=== PATIENT | female | born 1960 | race Caucasian/White ===

== ENCOUNTER 2016-12-12 20:49 | Emergency (ER) | payer MEDICARE, OTHER ==
[~2016-12-12 20:49] MED LIST: EXCETAB80 PO; META55.43 PO; PAIN PILL PO
[2016-12-12] MEDS ORDERED: METOCLOPRAMIDE INJ 10MG/2ML VIAL (J2765) As Ordered ONE (22:06)
[2016-12-12] MEDS ORDERED: KETOROLAC 30 MG/ML VIAL (J1885) As Ordered ONE (22:06)
[2016-12-12 23:05] LABS: BASO % 0.5 % (0.0-1.0); EOS % 0.6 % (0.0-3.0); LARGE UNSTAINED CELL # 0.2 K/mm3 (0.0-0.4); LARGE UNSTAINED CELL % 2.5 % (0.0-4.0); LYMPH # 1.5 K/mm3 (1.5-4.5); LYMPH % 21.7 % (24.0-44.0); MEAN CORPUSCULAR HEMOGLOBIN 30.9 pg (27.0-33.0); MEAN CORPUSCULAR HGB CONC 33.2 g/dl (32.0-36.5); MONO # 0.6 K/mm3 (0.0-0.8); MONO % 10.1 % (0.0-5.0); NEUTROPHILS # 3.9 K/mm3 (1.8-7.7); NEUTROPHILS % 64.5 % (36.0-66.0); PLATELET COUNT, AUTOMATED 222 k/mm3 (150-450); RED CELL DISTRIBUTION WIDTH 11.9 % (11.5-14.5); WHITE BLOOD COUNT 6.1 K/mm3 (4.0-10.0)
[2016-12-12 23:09] LABS: ALBUMIN 3.5 GM/DL (3.2-5.2); ALKALINE PHOSPHATASE 92 U/L (45-117); ALT/SGPT 26 U/L (12-78); AMYLASE 37 U/L (25-115); ANION GAP 13 MEQ/L (8-16); AST/SGOT 19 U/L (15-37); BILIRUBIN,DIRECT < 0.1 MG/DL (0.0-0.2); BILIRUBIN,TOTAL 0.2 MG/DL (0.2-1.0); BLOOD UREA NITROGEN 12 MG/DL (7-18); CALCIUM LEVEL 8.5 MG/DL (8.5-10.1); CARBON DIOXIDE LEVEL 26 MEQ/L (21-32); CHLORIDE LEVEL 102 MEQ/L (98-107); GLOMERULAR FILTRATION RATE 54.5 (>51); GLUCOSE, FASTING 94 MG/DL (70-105); POTASSIUM SERUM 3.9 MEQ/L (3.5-5.1); SODIUM LEVEL 141 MEQ/L (136-145)
--- NOTE | 2016-12-12 23:10 | REPUSA ---
CT of the head Clinical history: Headache. Technique: Multiple axial CT images were obtained through the head without administration of contrast . Findings: The ventricles and sulci are symmetric bilaterally. There is no evidence of acute hemorrhag e or infarct. There is no midline shift, mass effect, or extra-axial fluid collection. The osseous st ructures are unremarkable. The visualized paranasal sinuses and mastoid air cells are clear. Impression: Negative study.
--- NOTE | 2016-12-12 23:20 | REPUSA ---
CT of the abdomen and pelvis without contrast Clinical statement: Pain. Technique: Multiple axial CT images were obtained from the base of the lungs to the floor of the pelv is utilizing 5 mm axial slices without administration of contrast. Coronal and sagittal reconstructio ns were also obtained. Comparison: 03/27/2015. Findings: Chest: The visualized lung bases are clear. Abdomen: The kidneys are normal in size bilaterally. There is a 1.2 cm simple cyst in the inferior le ft kidney. There is no evidence of hydronephrosis or nephrolithiasis. The liver, spleen, pancreas, ga llbladder and adrenal glands are unremarkable. The aorta demonstrates normal caliber and contour. The re is no abdominal lymphadenopathy or ascites. Pelvis: The bowel is unremarkable, with no obstructive or inflammatory changes. The appendix is nate l. The urinary bladder is within normal limits. There is no pelvic lymphadenopathy or ascites. The ot her pelvic structures appear unremarkable. Bones: There are no suspicious osseous abnormalities seen. Impression: No acute abnormality appreciated.
--- NOTE | 2016-12-12 23:54 | EDDOCDS ---
Nurse's Notes [facility] Name: Marian Vera Age: 55 yrs Sex: Female : 1960 Arrival Date: 12/12/2016 Time: 20:49 Bed I7 / 29 Private MD: Darline Lovell DO Diagnosis: Headache;Illness, unspecified-viral illness;Abdominal and pelvic pain Presentation: 12/12 20:57 Presenting complaint: Patient states: Fevers, headache, coughing x 4 days. Also jo3 complains of consistent pain (for years) in RUQ that seems to be worse today. This patient has no additional risk factors. Adult Sepsis Screening: The patient does not have new or worsening altered mentation. Patient's respiratory rate is less than 22. Systolic blood pressure is greater than 100. Patient has a qSOFA score of 0- Negative Sepsis Screen. Suicide/Homicide risk assessment- the patient denies having any suicidal and/or homicidal ideations and does not present with any other emotional, behavioral or mental health complaints. Status: Patient is not a guest services coordinator or dependent. Transition of care: patient was not received from another setting of care. 20:57 Acuity: MANPREET Level 4 jo3 20:57 Method Of Arrival: Walkin/Carried/Asstd jo3 22:01 Acuity level changed due to complexity of care. jo3 22:01 Acuity: MANPREET Level 3 jo3 Triage Assessment: 21:00 Headache History: This patient has a history of headaches and the character of this jo3 headache is like all previous headaches. General: Appears in no apparent distress, comfortable, Behavior is appropriate for age, cooperative, pleasant. Pain: Pain currently is 8 out of 10 on a pain scale. HIV screening NA for this visit Offered previously. Neurological: Level of Consciousness is awake, alert, Oriented to person, place, time. Respiratory: Airway is patent Respiratory effort is even, unlabored. Derm: Skin is pink, warm & dry. Historical: - Allergies: anitpsychotics; - Home Meds: 1. nyquil recommended dose (Last dose: 12/12/2016 20:00) - PMHx: autoimmune disease; Bipolar disorder; Hypercholesterolemia; - PSHx: Hysterectomy; Tubal ligation; neck surgery as child; - Social history: Smoking status: Patient uses tobacco products, light tobacco smoker. No barriers to communication noted, The patient speaks fluent Danish, Speaks appropriately for age. - Family history: Not pertinent. - : The pt / caregiver states he / she is not on anticoagulants. Home medication list is obtained from the patient. - Exposure Risk Screening:: None identified. Screenin:51 Screening information is obtained from the patient. Fall risk: No risks identified. ld5 Assistance ADL's: requires no assistance with activities of daily living. Abuse/DV Screen: The patient / caregiver reports he/she is: not in a situation that causes fear, pain or injury. Nutritional screening: No deficits noted. Advance Directives: Currently, there is no health care proxy. home support is adequate. Assessment: 22:23 General: Appears in no apparent distress, Behavior is appropriate for age. General: Pt ld5 very vague with answers. "I'm 55 so who knows what could be wrong with me". Pain: Location: head and abdomen. Neurological: Level of Consciousness is awake, alert. Respiratory: Airway is patent Respiratory effort is even, unlabored. GI: Abdomen is non- distended Bowel sounds present X 4 quads. Abd is soft X 4 quads Denies constipation, diarrhea, nausea, vomiting. : Denies burning with urination, pain with urination. Derm: Skin is intact, Skin is dry. 23:02 General: Pt returned from CT. Tolerated well. Reports feeling better but headache is ld5 unchanged. Will continue to monitor. 23:51 General: Appears in no apparent distress, Behavior is cooperative. Pain: Pain currently ld5 is 2 out of 10 on a pain scale. Neurological: Level of Consciousness is awake, alert. Respiratory: Airway is patent Respiratory effort is even, unlabored. Vital Signs: 20:51 BP 114 / 64; Pulse 102; Resp 18; Temp 100.4(O); Pulse Ox 96% on R/A; Weight 79.38 kg lr2 (R); Height 5 ft. 3 in. (160.02 cm) (R); Pain 6/10; 23:51 BP 90 / 54; Pulse 81; Resp 16; Temp 97; Pulse Ox 94% on R/A; ld5 20:51 Body Mass Index 31.00 (79.38 kg, 160.02 cm) lr2 Vitals: 20:51 Log In Time: December 12, 2016 at 20:49. lr2 ED Course: 20:51 Patient visited by Rayna Guadarrama. lr2 20:51 Darline Lovell is Private Physician. lr2 20:51 Patient moved to Waiting lr2 20:51 Patient moved to Pre RCE lr2 20:59 Triage Initiated jo3 21:01 Patient visited by Isabelle Hicks RN. jo3 21:21 Patient moved to Triage 3 jo3 21:44 [facility] ke 21:45 Patient visited by Matheus Woodard FNP. ke 21:45 Patient visited by Matheus Woodard FNP. ke 22:00 Patient moved to I7 jo3 22:17 Patient visited by Matheus Woodard FNP. ke 22:23 -Influenza A&B Rapid Antigen - Nose Sent. ld5 22:23 Amylase Sent. ld5 22:23 Basic Metabolic Profile Sent. ld5 22:23 CBC with Diff Sent. ld5 22:23 Lipase Sent. ld5 22:23 Liver Profile Sent. ld5 22:23 Urinalysis Sent. ld5 22:23 Urine Culture Sent. ld5 22:23 Inserted saline lock: 20 gauge in right antecubital area and blood collected. The ld5 patient tolerated the procedure well. Labs drawn. (by ED staff). Sent per order to lab. 22:43 [facility] [place] into [employer] and attached to record. [id number] 22:56 Patient visited by Matheus Woodard FNP. ke 23:03 Patient visited by Rayna Castillo,MARYJANE. ld5 23:36 Patient visited by Matheus Woodard FNP. ke 23:39 CT Head Without Contrast Returned. EDMS 23:39 CT ABD & PELVIS: No Contrast Returned. EDMS 23:40 Darline Lovell is Referral Physician. ke 23:51 The patient / caregiver is instructed regarding the plan of care and ED course. Patient ld5 has correct armband on for positive identification. 23:52 No procedures done that require assistance. ld5 23:53 Patient visited by Rayna Castillo,MARYJANE. ld5 Administered Medications: 22:23 Drug: NS 0.9% 1000 ml [sodium chloride 0.9 % intravenous solution] Route: IV; Rate: ld5 bolus; Site: right antecubital; 23:53 Follow up: IV Status: Completed infusion; IV Intake: 1000ml ld5 22:23 Drug: ketorolac 30 mg [ketorolac 30 mg/mL (1 mL) injection solution (1 mL)] Route: IVP; ld5 Site: right antecubital; 23:02 Follow up: Response: Pain is decreased ld5 22:23 Drug: Metoclopramide 10 mg [metoclopramide 5 mg/mL injection solution] Route: IV; Rate: ld5 40 mg/hr; Infused Over: 15 mins; Site: right antecubital; 23:02 Follow up: IV Status: Completed infusion ld5 Intake: 23:53 IV: 1000.00ml; Total: 1000.00ml. ld5 Order Results: Lab Order: Amylase; SPEC'M 12/12/16 22:20 Test: AMYLASE; Value: 37; Range: 25-115; Units: U/L; Status: F Lab Order: Basic Metabolic Profile; SPEC'M 12/12/16 22:20 Test: GLUCOSE, FASTING; Value: 94; Range: 70-105; Units: MG/DL; Status: F Test: BLOOD UREA NITROGEN; Value: 12; Range: 7-18; Units: MG/DL; Status: F Test: CREATININE FOR GFR; Value: 1.10; Range: 0.55-1.02; Abnormal: Above high normal; Units: MG/DL; Status: F Test: GLOMERULAR FILTRATION RATE; Value: 54.5; Range: >51; Status: F Test: SODIUM LEVEL; Value: 141; Range: 136-145; Units: MEQ/L; Status: F Test: POTASSIUM SERUM; Value: 3.9; Range: 3.5-5.1; Units: MEQ/L; Status: F Test: CHLORIDE LEVEL; Value: 102; Range: 98-107; Units: MEQ/L; Status: F Test: CARBON DIOXIDE LEVEL; Value: 26; Range: 21-32; Units: MEQ/L; Status: F Test: ANION GAP; Value: 13; Range: 8-16; Units: MEQ/L; Status: F Test: CALCIUM LEVEL; Value: 8.5; Range: 8.5-10.1; Units: MG/DL; Status: F Test Note: ; Units are mL/min/1.73 m2 Chronic Kidney Disease Staging per NKF: Stage I & II GFR >=60 Normal to Mildly Decreased Stage III GFR 30-59 Moderately Decreased Stage IV GFR 15-29 Severely Decreased Stage V GFR <15 Very Little GFR Left ESRD GFR <15 on DEMOLITION EXPERT Lab Order: CBC with Diff; ALEJANDRO 12/12/16 22:20 Test: WHITE BLOOD COUNT; Value: 6.1; Range: 4.0-10.0; Units: K/mm3; Status: F Test: RED BLOOD COUNT; Value: 4.50; Range: 4.00-5.40; Units: M/mm3; Status: F Test: HEMOGLOBIN; Value: 13.9; Range: 12.0-16.0; Units: g/dl; Status: F Test: HEMATOCRIT; Value: 41.8; Range: 36.0-47.0; Units: %; Status: F Test: MEAN CORPUSCULAR VOLUME; Value: 93.0; Range: 80.0-96.0; Units: fl; Status: F Test: MEAN CORPUSCULAR HEMOGLOBIN; Value: 30.9; Range: 27.0-33.0; Units: pg; Status: F Test: MEAN CORPUSCULAR HGB CONC; Value: 33.2; Range: 32.0-36.5; Units: g/dl; Status: F Test: RED CELL DISTRIBUTION WIDTH; Value: 11.9; Range: 11.5-14.5; Units: %; Status: F Test: PLATELET COUNT, AUTOMATED; Value: 222; Range: 150-450; Units: k/mm3; Status: F Test: NEUTROPHILS %; Value: 64.5; Range: 36.0-66.0; Units: %; Status: F Test: LYMPH %; Value: 21.7; Range: 24.0-44.0; Abnormal: Below low normal; Units: %; Status: F Test: MONO %; Value: 10.1; Range: 0.0-5.0; Abnormal: Above high normal; Units: %; Status: F Test: EOS %; Value: 0.6; Range: 0.0-3.0; Units: %; Status: F Test: BASO %; Value: 0.5; Range: 0.0-1.0; Units: %; Status: F Test: LARGE UNSTAINED CELL %; Value: 2.5; Range: 0.0-4.0; Units: %; Status: F Test: NEUTROPHILS #; Value: 3.9; Range: 1.8-7.7; Units: K/mm3; Status: F Test: LYMPH #; Value: 1.5; Range: 1.5-4.5; Units: K/mm3; Status: F Test: MONO #; Value: 0.6; Range: 0.0-0.8; Units: K/mm3; Status: F Test: EOS #; Value: 0.0; Range: 0.0-0.50; Units: K/mm3; Status: F Test: BASO #; Value: 0.0; Range: 0.0-0.2; Units: K/mm3; Status: F Test: LARGE UNSTAINED CELL #; Value: 0.2; Range: 0.0-0.4; Units: K/mm3; Status: F Lab Order: Lipase; [facility] 12/12/16 22:20 Test: LIPASE; Value: 325; Range: 73-393; Units: U/L; Status: F Lab Order: Liver Profile; [facility] 12/12/16 22:20 Test: AST/SGOT; Value: 19; Range: 15-37; Units: U/L; Status: F Test: ALT/SGPT; Value: 26; Range: 12-78; Units: U/L; Status: F Test: ALKALINE PHOSPHATASE; Value: 92; Range: 45-117; Units: U/L; Status: F Test: BILIRUBIN,TOTAL; Value: 0.2; Range: 0.2-1.0; Units: MG/DL; Status: F Test: BILIRUBIN,DIRECT; Value: < 0.1; Range: 0.0-0.2; Units: MG/DL; Status: F Test: TOTAL PROTEIN; Value: 7.0; Range: 6.4-8.2; Units: GM/DL; Status: F Test: ALBUMIN; Value: 3.5; Range: 3.2-5.2; Units: GM/DL; Status: F Test: ALBUMIN/GLOBULIN RATIO; Value: 1.00; Range: 1.00-1.93; Status: F Lab Order: Urinalysis; SPEC' 12/12/16 22:20 Test: APPEARANCE, URINE; Value: CLEAR; Range: CLEAR; Status: F Test: COLOR, URINE; Value: YELLOW; Range: YELLOW; Status: F Test: PH,URINE; Value: 5.0; Range: 5.0-9.0; Units: UNITS; Status: F Test: SPECIFIC GRAVITY URINE AUTO; Value: 1.029; Range: 1.002-1.035; Status: F Test: PROTEIN, URINE AUTO; Value: 1+; Range: NEGATIVE; Abnormal: Above high normal; Units: mg/dL; Status: F Test: GLUCOSE, URINE (UA) AUTO; Value: NEGATIVE; Range: NEGATIVE; Units: mg/dL; Status: F Test: KETONE, URINE AUTO; Value: TRACE; Range: NEGATIVE; Abnormal: Above high normal; Units: mg/dL; Status: F Test: UROBILINOGEN, URINE AUTO; Value: 0.2; Range: 0.0-2.0; Units: mg/dL; Status: F Test: BILIRUBIN, URINE AUTO; Value: NEGATIVE; Range: NEGATIVE; Status: F Test: NITRITE, URINE AUTO; Value: NEGATIVE; Range: NEGATIVE; Status: F Test: LEUKOCYTE ESTERASE, URINE AUTO; Value: NEGATIVE; Range: NEGATIVE; Status: F Test: BLOOD, URINE BLOOD; Value: NEGATIVE; Range: NEGATIVE; Status: F Test: WBC, URINE AUTO; Value: 2; Range: 0-3; Units: /HPF; Status: F Test: RBC, URINE AUTO; Value: 1; Range: 0-3; Units: /HPF; Status: F Test: BACTERIA, URINE AUTO; Value: NEGATIVE; Range: NEGATIVE; Status: F Test: SQUAMOUS EPITHELIAL CELL UR AU; Value: 0; Range: 0-6; Units: /HPF; Status: F Test: MUCUS, URINE; Value: SMALL; Range: NEGATIVE; Status: F Test: HYALINE CAST, URINE AUTO; Value: 2; Range: 0-1; Units: /LPF; Status: F Lab Order: -Influenza A&B Rapid Antigen - Nose; SPEC'M 12/12/16 22:20 Test: INFLUENZA A RAPID SCR by ICA; Value: INFLUENZA A RESULTS NEGATIVE; Status: F Test: INFLUENZA A RAPID SCR by ICA; Value: Comments:; Status: F Test: INFLUENZA B RAPID SCR by ICA; Value: INFLUENZA B RESULTS NEGATIVE; Status: F Test Note: ; The Influenza test is a direct rapid immunoassay for the qualitative detection of Influenza viral antigen. Cell culture (Viral Culture) testing should be considered to confirm NEGATIVE results and to assist in detecting other viruses that can provide similar clinical symptoms. Please contact the lab within 24 hours ([phone]) if confirmatory testing is desired. Radiology Order: CT Head Without Contrast Test: CT Head Without Contrast REASON FOR EXAMINATION: barber; ; CT of the head; Clinical history: Headache.; Technique: Multiple axial CT images were obtained through the head without administration of contrast; .; Findings: The ventricles and sulci are symmetric bilaterally. There is no evidence of acute hemorrhag; e or infarct. There is no midline shift, mass effect, or extra-axial fluid collection. The osseous st; ructures are unremarkable. The visualized paranasal sinuses and mastoid air cells are clear.; Impression: Negative study.; ; Radiology Order: CT ABD & PELVIS: No Contrast Test: CT ABD & PELVIS: No Contrast REASON FOR EXAMINATION: luq pain; ; CT of the abdomen and pelvis without contrast; Clinical statement: Pain.; Technique: Multiple axial CT images were obtained from the base of the lungs to the floor of the pelv; is utilizing 5 mm axial slices without administration of contrast. Coronal and sagittal reconstructio; ns were also obtained.; Comparison: 03/27/2015.; Findings:; Chest: The visualized lung bases are clear.; Abdomen: The kidneys are normal in size bilaterally. There is a 1.2 cm simple cyst in the inferior le; ft kidney. There is no evidence of hydronephrosis or nephrolithiasis. The liver, spleen, pancreas, ga; llbladder and adrenal glands are unremarkable. The aorta demonstrates normal caliber and contour. The; re is no abdominal lymphadenopathy or ascites.; Pelvis: The bowel is unremarkable, with no obstructive or inflammatory changes. The appendix is nate; l. The urinary bladder is within normal limits. There is no pelvic lymphadenopathy or ascites. The ot; her pelvic structures appear unremarkable.; Bones: There are no suspicious osseous abnormalities seen.; Impression: No acute abnormality appreciated.; ; Outcome: 23:41 Discharge ordered by Provider. ke 23:52 Discharge Assessment: Patient awake, alert and oriented x 3. No cognitive and/or ld5 functional deficits noted. Patient verbalized understanding of disposition instructions. patient administered narcotics - no. The following High Risk Discharge criteria are identified: None. Discharged to home ambulatory. Condition: stable. Discharge instructions given to patient, Instructed on discharge instructions, follow up and referral plans. medication usage, Demonstrated understanding of instructions, medications, Prescriptions given X 1. CT Study completed. Property :Personal belongings accompany Pt. 23:53 Patient left the ED. ld5 Signatures: Dispatcher [employer] EDMatheus Foote, LEO VIDEO RECORDER MECHANICIsabelle Loco RN RN jo3 Dickerson, Laura,MARYJANE RN Barbi Ragland, Reg Reg [email or web address] Rayna Guadarrama lr2 RIN
--- NOTE | 2016-12-12 23:54 | EDDOCDS ---
Physician Documentation [facility] Name: Marian Vera Age: 55 yrs Sex: Female : 1960 Arrival Date: 12/12/2016 Time: 20:49 Bed I7 Private MD: Darline Lovell DO Disposition: 12/12/16 23:41 Discharged to Home/Self Care. Impression: Headache, Illness, unspecified - viral illness, Abdominal and pelvic pain. - Condition is Stable. - Discharge Instructions: Abdominal Pain, Adult, General Headache Without Cause, Mohz-ta-Dflb, Viral Infections. - Prescriptions for Reglan 10 mg Oral Tablet - take 1 tablet by ORAL route every 6 hours take 30 minutes before meals and at bedtime; 20 tablet. - Medication Reconciliation, Local Pharmacy Hours form. - Follow up: Darline Lovell; When: 1 week; Reason: Recheck today's complaints, Continuance of care. - Problem is an ongoing problem. - Symptoms are unchanged. Historical: - Allergies: anitpsychotics; - Home Meds: 1. nyquil recommended dose (Last dose: 12/12/2016 20:00) - PMHx: autoimmune disease; Bipolar disorder; Hypercholesterolemia; - PSHx: Hysterectomy; Tubal ligation; neck surgery as child; - Social history: Smoking status: Patient uses tobacco products, light tobacco smoker. No barriers to communication noted, The patient speaks fluent Yakut, Speaks appropriately for age. - Family history: Not pertinent. - : The pt / caregiver states he / she is not on anticoagulants. Home medication list is obtained from the patient. - Exposure Risk Screening:: None identified. Vital Signs: 12/12 20:51 BP 114 / 64; Pulse 102; Resp 18; Temp 100.4(O); Pulse Ox 96% on R/A; Weight 79.38 kg / lr2 175 lbs (R); Height 5 ft. 3 in. (160.02 cm) (R); Pain 6/10; 23:51 BP 90 / 54; Pulse 81; Resp 16; Temp 97; Pulse Ox 94% on R/A; ld5 20:51 Body Mass Index 31.00 (79.38 kg, 160.02 cm) lr2 MDM: 21:59 NS 0.9% 1000 ml IV at bolus once ordered. ke 21:59 ketorolac 30 mg IVP once ordered. ke 21:59 IV Saline Lock ordered. ke 21:59 Undress patient appropriately for examination ordered. ke 21:59 Metoclopramide 10 mg IV at 40 mg/hr once over 15 mins ordered. ke 21:59 Obtain sample by nasopharyngeal swab ordered. ke 22:00 CT Head Without Contrast Ordered. EDMS 22:00 CT ABD & PELVIS: No Contrast Ordered. EDMS 22:01 Amylase Ordered. EDMS 22:01 Basic Metabolic Profile Ordered. EDMS 22:01 CBC with Diff Ordered. EDMS 22:01 Lipase Ordered. EDMS 22:01 Liver Profile Ordered. EDMS 22:01 Urinalysis Ordered. EDMS 22:01 Urine Culture Ordered. EDMS 22:01 -Influenza A&B Rapid Antigen - Nose Ordered. EDMS 22:02 NOTHING BY MOUTH+DIET ordered. EDMS 22:42 Financial registration complete. ks16 22:43 [facility] Payment Agreement was scanned into [employer] and attached to record. ks16 23:21 Basic Metabolic Profile Reviewed. ke 23:21 CBC with Diff Reviewed. ke 23:21 Urinalysis Reviewed. ke 23:21 Amylase Reviewed. ke 23:21 Lipase Reviewed. ke 23:21 Liver Profile Reviewed. ke 23:21 -Influenza A&B Rapid Antigen - Nose Reviewed. ke Administered Medications: 22:23 Drug: NS 0.9% 1000 ml [sodium chloride 0.9 % intravenous solution] Route: IV; Rate: ld5 bolus; Site: right antecubital; 23:53 Follow up: IV Status: Completed infusion; IV Intake: 1000ml ld5 22:23 Drug: ketorolac 30 mg [ketorolac 30 mg/mL (1 mL) injection solution (1 mL)] Route: IVP; ld5 Site: right antecubital; 23:02 Follow up: Response: Pain is decreased ld5 22:23 Drug: Metoclopramide 10 mg [metoclopramide 5 mg/mL injection solution] Route: IV; Rate: ld5 40 mg/hr; Infused Over: 15 mins; Site: right antecubital; 23:02 Follow up: IV Status: Completed infusion ld5 Signatures: Dispatcher [employer] EDMS Matheus Woodard, MEDIA TRAFFIC MANAGER MEDIA TRAFFIC MANAGER Isabelle Art RN RN jo3 Dickerson, Laura, RN RN ld5 Barbi Muro, Reg Reg [email or web address] The chart was reviewed and I authenticate all verbal orders and agree with the evaluation and treatment provided.Attachments: 22:43 [facility] Payment Agreement [email or web address]
--- NOTE | 2016-12-15 00:54 | EDDOCDS ---
Physician Documentation [facility] Name: Marian Vera Age: 55 yrs Sex: Female : 1960 Arrival Date: 12/12/2016 Time: 20:49 Bed I7 Private MD: Darline Lovell DO Disposition: 12/12/16 23:41 Discharged to Home/Self Care. Impression: Headache, Illness, unspecified - viral illness, Abdominal and pelvic pain. - Condition is Stable. - Discharge Instructions: Abdominal Pain, Adult, General Headache Without Cause, [id number], Viral Infections. - Prescriptions for Reglan 10 mg Oral Tablet - take 1 tablet by ORAL route every 6 hours take 30 minutes before meals and at bedtime; 20 tablet. - Medication Reconciliation, Local Pharmacy Hours form. - Follow up: Darline Lovell; When: 1 week; Reason: Recheck today's complaints, Continuance of care. - Problem is an ongoing problem. - Symptoms are unchanged. Historical: - Allergies: anitpsychotics; - Home Meds: 1. nyquil recommended dose (Last dose: 12/12/2016 20:00) - PMHx: autoimmune disease; Bipolar disorder; Hypercholesterolemia; - PSHx: Hysterectomy; Tubal ligation; neck surgery as child; - Social history: Smoking status: Patient uses tobacco products, light tobacco smoker. No barriers to communication noted, The patient speaks fluent Upper Sorbian, Speaks appropriately for age. - Family history: Not pertinent. - : The pt / caregiver states he / she is not on anticoagulants. Home medication list is obtained from the patient. - Exposure Risk Screening:: None identified. Vital Signs: 12/12 20:51 BP 114 / 64; Pulse 102; Resp 18; Temp 100.4(O); Pulse Ox 96% on R/A; Weight 79.38 kg / lr2 175 lbs (R); Height 5 ft. 3 in. (160.02 cm) (R); Pain 6/10; 23:51 BP 90 / 54; Pulse 81; Resp 16; Temp 97; Pulse Ox 94% on R/A; ld5 20:51 Body Mass Index 31.00 (79.38 kg, 160.02 cm) lr2 MDM: 21:59 NS 0.9% 1000 ml IV at bolus once ordered. ke 21:59 ketorolac 30 mg IVP once ordered. ke 21:59 IV Saline Lock ordered. ke 21:59 Undress patient appropriately for examination ordered. ke 21:59 Metoclopramide 10 mg IV at 40 mg/hr once over 15 mins ordered. ke 21:59 Obtain sample by nasopharyngeal swab ordered. ke 22:00 CT Head Without Contrast Ordered. EDMS 22:00 CT ABD & PELVIS: No Contrast Ordered. EDMS 22:01 Amylase Ordered. EDMS 22:01 Basic Metabolic Profile Ordered. EDMS 22:01 CBC with Diff Ordered. EDMS 22:01 Lipase Ordered. EDMS 22:01 Liver Profile Ordered. EDMS 22:01 Urinalysis Ordered. EDMS 22:01 Urine Culture Ordered. EDMS 22:01 -Influenza A&B Rapid Antigen - Nose Ordered. EDMS 22:02 NOTHING BY MOUTH+DIET ordered. EDMS 22:42 Financial registration complete. [email or web address] 22:43 [facility] Payment Agreement was scanned into [employer] and attached to record. ks16 23:21 Basic Metabolic Profile Reviewed. ke 23:21 CBC with Diff Reviewed. ke 23:21 Urinalysis Reviewed. ke 23:21 Amylase Reviewed. ke 23:21 Lipase Reviewed. ke 23:21 Liver Profile Reviewed. ke 23:21 -Influenza A&B Rapid Antigen - Nose Reviewed. ke 12/13 11:23 T-Sheet-- Draft Copy was scanned into Everest and attached to record. 11:23 Radiology Report was scanned into Everest and attached to record. gb Administered Medications: 12/12 22:23 Drug: NS 0.9% 1000 ml [sodium chloride 0.9 % intravenous solution] Route: IV; Rate: ld5 bolus; Site: right antecubital; 23:53 Follow up: IV Status: Completed infusion; IV Intake: 1000ml ld5 22:23 Drug: ketorolac 30 mg [ketorolac 30 mg/mL (1 mL) injection solution (1 mL)] Route: IVP; ld5 Site: right antecubital; 23:02 Follow up: Response: Pain is decreased ld5 22:23 Drug: Metoclopramide 10 mg [metoclopramide 5 mg/mL injection solution] Route: IV; Rate: ld5 40 mg/hr; Infused Over: 15 mins; Site: right antecubital; 23:02 Follow up: IV Status: Completed infusion ld5 Signatures: Dispatcher MedHost EDRuma Hart, Reg Reg gb Matheus Woodard, PROJECT MANAGER/DESIGN MANAGER PROJECT MANAGER/DESIGN MANAGER Isabelle ArtRN RN ana maria3 Rayna CastilloRN RN ld5 Barbi Muro, Reg Reg [email or web address] The chart was reviewed and I authenticate all verbal orders and agree with the evaluation and treatment provided.Attachments: 22:43 [facility] Payment Agreement [email or web address] 12/13 11:23 T-Sheet-- Draft Copy gb Chart Complete MTDD
--- NOTE | 2016-12-15 00:54 | EDDOCDS ---
Physician Documentation [facility] Name: Marian Vera Age: 55 yrs Sex: Female : 1960 Arrival Date: 12/12/2016 Time: 20:49 Bed I7 Private MD: Darline Lovell DO Disposition: 12/12/16 23:41 Discharged to Home/Self Care. Impression: Headache, Illness, unspecified - viral illness, Abdominal and pelvic pain. - Condition is Stable. - Discharge Instructions: Abdominal Pain, Adult, General Headache Without Cause, Bebo-ce-Wjik, Viral Infections. - Prescriptions for Reglan 10 mg Oral Tablet - take 1 tablet by ORAL route every 6 hours take 30 minutes before meals and at bedtime; 20 tablet. - Medication Reconciliation, Local Pharmacy Hours form. - Follow up: Darline Lovell; When: 1 week; Reason: Recheck today's complaints, Continuance of care. - Problem is an ongoing problem. - Symptoms are unchanged. Historical: - Allergies: anitpsychotics; - Home Meds: 1. nyquil recommended dose (Last dose: 12/12/2016 20:00) - PMHx: autoimmune disease; Bipolar disorder; Hypercholesterolemia; - PSHx: Hysterectomy; Tubal ligation; neck surgery as child; - Social history: Smoking status: Patient uses tobacco products, light tobacco smoker. No barriers to communication noted, The patient speaks fluent Divehi, Speaks appropriately for age. - Family history: Not pertinent. - : The pt / caregiver states he / she is not on anticoagulants. Home medication list is obtained from the patient. - Exposure Risk Screening:: None identified. Vital Signs: 12/12 20:51 BP 114 / 64; Pulse 102; Resp 18; Temp 100.4(O); Pulse Ox 96% on R/A; Weight 79.38 kg / lr2 175 lbs (R); Height 5 ft. 3 in. (160.02 cm) (R); Pain 6/10; 23:51 BP 90 / 54; Pulse 81; Resp 16; Temp 97; Pulse Ox 94% on R/A; ld5 20:51 Body Mass Index 31.00 (79.38 kg, 160.02 cm) lr2 MDM: 21:59 NS 0.9% 1000 ml IV at bolus once ordered. ke 21:59 ketorolac 30 mg IVP once ordered. ke 21:59 IV Saline Lock ordered. ke 21:59 Undress patient appropriately for examination ordered. ke 21:59 Metoclopramide 10 mg IV at 40 mg/hr once over 15 mins ordered. ke 21:59 Obtain sample by nasopharyngeal swab ordered. ke 22:00 CT Head Without Contrast Ordered. EDMS 22:00 CT ABD & PELVIS: No Contrast Ordered. EDMS 22:01 Amylase Ordered. EDMS 22:01 Basic Metabolic Profile Ordered. EDMS 22:01 CBC with Diff Ordered. EDMS 22:01 Lipase Ordered. EDMS 22:01 Liver Profile Ordered. EDMS 22:01 Urinalysis Ordered. EDMS 22:01 Urine Culture Ordered. EDMS 22:01 -Influenza A&B Rapid Antigen - Nose Ordered. EDMS 22:02 NOTHING BY MOUTH+DIET ordered. EDMS 22:42 Financial registration complete. [email or web address] 22:43 [facility] Payment Agreement was scanned into [employer] and attached to record. ks16 23:21 Basic Metabolic Profile Reviewed. ke 23:21 CBC with Diff Reviewed. ke 23:21 Urinalysis Reviewed. ke 23:21 Amylase Reviewed. ke 23:21 Lipase Reviewed. ke 23:21 Liver Profile Reviewed. ke 23:21 -Influenza A&B Rapid Antigen - Nose Reviewed. ke 12/13 11:23 T-Sheet-- Draft Copy was scanned into [employer] and attached to record. 11:23 Radiology Report was scanned into [employer] and attached to record. gb Administered Medications: 12/12 22:23 Drug: NS 0.9% 1000 ml [sodium chloride 0.9 % intravenous solution] Route: IV; Rate: ld5 bolus; Site: right antecubital; 23:53 Follow up: IV Status: Completed infusion; IV Intake: 1000ml ld5 22:23 Drug: ketorolac 30 mg [ketorolac 30 mg/mL (1 mL) injection solution (1 mL)] Route: IVP; ld5 Site: right antecubital; 23:02 Follow up: Response: Pain is decreased ld5 22:23 Drug: Metoclopramide 10 mg [metoclopramide 5 mg/mL injection solution] Route: IV; Rate: ld5 40 mg/hr; Infused Over: 15 mins; Site: right antecubital; 23:02 Follow up: IV Status: Completed infusion ld5 Signatures: Dispatcher MedHost EDRuma Hart, Reg Reg gb Matheus Woodard, FACIALIST FACIALIST Isabelle ArtRN RN ana maria3 Rayna CastilloRN RN ld5 Barbi Muro, Reg Reg ks16 The chart was reviewed and I authenticate all verbal orders and agree with the evaluation and treatment provided.Attachments: 22:43 [facility] Payment Agreement [email or web address] 12/13 11:23 T-Sheet-- Draft Copy gb Chart Complete MTDD
--- NOTE | 2016-12-15 00:54 | EDDOCDS ---
Nurse's Notes [facility] Name: Marian Vera Age: 55 yrs Sex: Female : 1960 Arrival Date: 12/12/2016 Time: 20:49 Bed I7 / 29 Private MD: Darline Lovell DO Diagnosis: Headache;Illness, unspecified-viral illness;Abdominal and pelvic pain Presentation: 12/12 20:57 Presenting complaint: Patient states: Fevers, headache, coughing x 4 days. Also jo3 complains of consistent pain (for years) in RUQ that seems to be worse today. This patient has no additional risk factors. Adult Sepsis Screening: The patient does not have new or worsening altered mentation. Patient's respiratory rate is less than 22. Systolic blood pressure is greater than 100. Patient has a qSOFA score of 0- Negative Sepsis Screen. Suicide/Homicide risk assessment- the patient denies having any suicidal and/or homicidal ideations and does not present with any other emotional, behavioral or mental health complaints. Status: Patient is not a customer service receptionist or dependent. Transition of care: patient was not received from another setting of care. 20:57 Acuity: MANPREET Level 4 jo3 20:57 Method Of Arrival: Walkin/Carried/Asstd jo3 22:01 Acuity level changed due to complexity of care. jo3 22:01 Acuity: MANPREET Level 3 jo3 Triage Assessment: 21:00 Headache History: This patient has a history of headaches and the character of this jo3 headache is like all previous headaches. General: Appears in no apparent distress, comfortable, Behavior is appropriate for age, cooperative, pleasant. Pain: Pain currently is 8 out of 10 on a pain scale. HIV screening NA for this visit Offered previously. Neurological: Level of Consciousness is awake, alert, Oriented to person, place, time. Respiratory: Airway is patent Respiratory effort is even, unlabored. Derm: Skin is pink, warm & dry. Historical: - Allergies: anitpsychotics; - Home Meds: 1. nyquil recommended dose (Last dose: 12/12/2016 20:00) - PMHx: autoimmune disease; Bipolar disorder; Hypercholesterolemia; - PSHx: Hysterectomy; Tubal ligation; neck surgery as child; - Social history: Smoking status: Patient uses tobacco products, light tobacco smoker. No barriers to communication noted, The patient speaks fluent Irish, Speaks appropriately for age. - Family history: Not pertinent. - : The pt / caregiver states he / she is not on anticoagulants. Home medication list is obtained from the patient. - Exposure Risk Screening:: None identified. Screenin:51 Screening information is obtained from the patient. Fall risk: No risks identified. ld5 Assistance ADL's: requires no assistance with activities of daily living. Abuse/DV Screen: The patient / caregiver reports he/she is: not in a situation that causes fear, pain or injury. Nutritional screening: No deficits noted. Advance Directives: Currently, there is no health care proxy. home support is adequate. Assessment: 22:23 General: Appears in no apparent distress, Behavior is appropriate for age. General: Pt ld5 very vague with answers. "I'm 55 so who knows what could be wrong with me". Pain: Location: head and abdomen. Neurological: Level of Consciousness is awake, alert. Respiratory: Airway is patent Respiratory effort is even, unlabored. GI: Abdomen is non- distended Bowel sounds present X 4 quads. Abd is soft X 4 quads Denies constipation, diarrhea, nausea, vomiting. : Denies burning with urination, pain with urination. Derm: Skin is intact, Skin is dry. 23:02 General: Pt returned from CT. Tolerated well. Reports feeling better but headache is ld5 unchanged. Will continue to monitor. 23:51 General: Appears in no apparent distress, Behavior is cooperative. Pain: Pain currently ld5 is 2 out of 10 on a pain scale. Neurological: Level of Consciousness is awake, alert. Respiratory: Airway is patent Respiratory effort is even, unlabored. Vital Signs: 20:51 BP 114 / 64; Pulse 102; Resp 18; Temp 100.4(O); Pulse Ox 96% on R/A; Weight 79.38 kg lr2 (R); Height 5 ft. 3 in. (160.02 cm) (R); Pain 6/10; 23:51 BP 90 / 54; Pulse 81; Resp 16; Temp 97; Pulse Ox 94% on R/A; ld5 20:51 Body Mass Index 31.00 (79.38 kg, 160.02 cm) lr2 Vitals: 20:51 Log In Time: December 12, 2016 at 20:49. lr2 ED Course: 20:51 Patient visited by Rayna Guadarrama. lr2 20:51 Darline Lovell is Private Physician. lr2 20:51 Patient moved to Waiting lr2 20:51 Patient moved to Pre RCE lr2 20:59 Triage Initiated jo3 21:01 Patient visited by Isabelle Hicks,MARYJANE. jo3 21:21 Patient moved to Triage 3 jo3 21:44 Matheus Woodard FNP [facility]. ke 21:45 Patient visited by Matheus Woodard FNP. ke 21:45 Patient visited by Matheus Woodard FNP. ke 22:00 Patient moved to I7 jo3 22:17 Patient visited by Matheus Woodard FNP. ke 22:23 -Influenza A&B Rapid Antigen - Nose Sent. ld5 22:23 Amylase Sent. ld5 22:23 Basic Metabolic Profile Sent. ld5 22:23 CBC with Diff Sent. ld5 22:23 Lipase Sent. ld5 22:23 Liver Profile Sent. ld5 22:23 Urinalysis Sent. ld5 22:23 Urine Culture Sent. ld5 22:23 Inserted saline lock: 20 gauge in right antecubital area and blood collected. The ld5 patient tolerated the procedure well. Labs drawn. (by ED staff). Sent per order to lab. 22:43 [facility] Payment Agreement was scanned into [employer] and attached to record. ks16 22:56 Patient visited by Matheus Woodard FNP. ke 23:03 Patient visited by Rayna Castillo,MARYJANE. ld5 23:36 Patient visited by Matheus Woodard FNP. ke 23:39 CT Head Without Contrast Returned. EDMS 23:39 CT ABD & PELVIS: No Contrast Returned. EDMS 23:40 Darline Lovell is Referral Physician. ke 23:51 The patient / caregiver is instructed regarding the plan of care and ED course. Patient ld5 has correct armband on for positive identification. 23:52 No procedures done that require assistance. ld5 23:53 Patient visited by Rayna Castillo,MARYJANE. ld5 12/13 11:23 T-Sheet-- Draft Copy was scanned into [employer] and attached to record. gb 11:23 Radiology Report was scanned into [employer] and attached to record. gb Administered Medications: 12/12 22:23 Drug: NS 0.9% 1000 ml [sodium chloride 0.9 % intravenous solution] Route: IV; Rate: ld5 bolus; Site: right antecubital; 23:53 Follow up: IV Status: Completed infusion; IV Intake: 1000ml ld5 22:23 Drug: ketorolac 30 mg [ketorolac 30 mg/mL (1 mL) injection solution (1 mL)] Route: IVP; ld5 Site: right antecubital; : Follow up: Response: Pain is decreased ld5 22:23 Drug: Metoclopramide 10 mg [metoclopramide 5 mg/mL injection solution] Route: IV; Rate: ld5 40 mg/hr; Infused Over: 15 mins; Site: right antecubital; : Follow up: IV Status: Completed infusion ld5 Intake: 23:53 IV: 1000.00ml; Total: 1000.00ml. ld5 Order Results: Lab Order: Amylase; SPEC'M 12/12/16 22:20 Test: AMYLASE; Value: 37; Range: 25-115; Units: U/L; Status: F Lab Order: Basic Metabolic Profile; SPEC'M 12/12/16 22:20 Test: GLUCOSE, FASTING; Value: 94; Range: 70-105; Units: MG/DL; Status: F Test: BLOOD UREA NITROGEN; Value: 12; Range: 7-18; Units: MG/DL; Status: F Test: CREATININE FOR GFR; Value: 1.10; Range: 0.55-1.02; Abnormal: Above high normal; Units: MG/DL; Status: F Test: GLOMERULAR FILTRATION RATE; Value: 54.5; Range: >51; Status: F Test: SODIUM LEVEL; Value: 141; Range: 136-145; Units: MEQ/L; Status: F Test: POTASSIUM SERUM; Value: 3.9; Range: 3.5-5.1; Units: MEQ/L; Status: F Test: CHLORIDE LEVEL; Value: 102; Range: 98-107; Units: MEQ/L; Status: F Test: CARBON DIOXIDE LEVEL; Value: 26; Range: 21-32; Units: MEQ/L; Status: F Test: ANION GAP; Value: 13; Range: 8-16; Units: MEQ/L; Status: F Test: CALCIUM LEVEL; Value: 8.5; Range: 8.5-10.1; Units: MG/DL; Status: F Test Note: ; Units are mL/min/1.73 m2 Chronic Kidney Disease Staging per NKF: Stage I & II GFR >=60 Normal to Mildly Decreased Stage III GFR 30-59 Moderately Decreased Stage IV GFR 15-29 Severely Decreased Stage V GFR <15 Very Little GFR Left ESRD GFR <15 on DRILLER AND REAMER Lab Order: CBC with Diff; SPEC'M 12/12/16 22:20 Test: WHITE BLOOD COUNT; Value: 6.1; Range: 4.0-10.0; Units: K/mm3; Status: F Test: RED BLOOD COUNT; Value: 4.50; Range: 4.00-5.40; Units: M/mm3; Status: F Test: HEMOGLOBIN; Value: 13.9; Range: 12.0-16.0; Units: g/dl; Status: F Test: HEMATOCRIT; Value: 41.8; Range: 36.0-47.0; Units: %; Status: F Test: MEAN CORPUSCULAR VOLUME; Value: 93.0; Range: 80.0-96.0; Units: fl; Status: F Test: MEAN CORPUSCULAR HEMOGLOBIN; Value: 30.9; Range: 27.0-33.0; Units: pg; Status: F Test: MEAN CORPUSCULAR HGB CONC; Value: 33.2; Range: 32.0-36.5; Units: g/dl; Status: F Test: RED CELL DISTRIBUTION WIDTH; Value: 11.9; Range: 11.5-14.5; Units: %; Status: F Test: PLATELET COUNT, AUTOMATED; Value: 222; Range: 150-450; Units: k/mm3; Status: F Test: NEUTROPHILS %; Value: 64.5; Range: 36.0-66.0; Units: %; Status: F Test: LYMPH %; Value: 21.7; Range: 24.0-44.0; Abnormal: Below low normal; Units: %; Status: F Test: MONO %; Value: 10.1; Range: 0.0-5.0; Abnormal: Above high normal; Units: %; Status: F Test: EOS %; Value: 0.6; Range: 0.0-3.0; Units: %; Status: F Test: BASO %; Value: 0.5; Range: 0.0-1.0; Units: %; Status: F Test: LARGE UNSTAINED CELL %; Value: 2.5; Range: 0.0-4.0; Units: %; Status: F Test: NEUTROPHILS #; Value: 3.9; Range: 1.8-7.7; Units: K/mm3; Status: F Test: LYMPH #; Value: 1.5; Range: 1.5-4.5; Units: K/mm3; Status: F Test: MONO #; Value: 0.6; Range: 0.0-0.8; Units: K/mm3; Status: F Test: EOS #; Value: 0.0; Range: 0.0-0.50; Units: K/mm3; Status: F Test: BASO #; Value: 0.0; Range: 0.0-0.2; Units: K/mm3; Status: F Test: LARGE UNSTAINED CELL #; Value: 0.2; Range: 0.0-0.4; Units: K/mm3; Status: F Lab Order: Lipase; [facility] 12/12/16 22:20 Test: LIPASE; Value: 325; Range: 73-393; Units: U/L; Status: F Lab Order: Liver Profile; [facility] 12/12/16 22:20 Test: AST/SGOT; Value: 19; Range: 15-37; Units: U/L; Status: F Test: ALT/SGPT; Value: 26; Range: 12-78; Units: U/L; Status: F Test: ALKALINE PHOSPHATASE; Value: 92; Range: 45-117; Units: U/L; Status: F Test: BILIRUBIN,TOTAL; Value: 0.2; Range: 0.2-1.0; Units: MG/DL; Status: F Test: BILIRUBIN,DIRECT; Value: < 0.1; Range: 0.0-0.2; Units: MG/DL; Status: F Test: TOTAL PROTEIN; Value: 7.0; Range: 6.4-8.2; Units: GM/DL; Status: F Test: ALBUMIN; Value: 3.5; Range: 3.2-5.2; Units: GM/DL; Status: F Test: ALBUMIN/GLOBULIN RATIO; Value: 1.00; Range: 1.00-1.93; Status: F Lab Order: Urinalysis; SPEC'M 12/12/16 22:20 Test: APPEARANCE, URINE; Value: CLEAR; Range: CLEAR; Status: F Test: COLOR, URINE; Value: YELLOW; Range: YELLOW; Status: F Test: PH,URINE; Value: 5.0; Range: 5.0-9.0; Units: UNITS; Status: F Test: SPECIFIC GRAVITY URINE AUTO; Value: 1.029; Range: 1.002-1.035; Status: F Test: PROTEIN, URINE AUTO; Value: 1+; Range: NEGATIVE; Abnormal: Above high normal; Units: mg/dL; Status: F Test: GLUCOSE, URINE (UA) AUTO; Value: NEGATIVE; Range: NEGATIVE; Units: mg/dL; Status: F Test: KETONE, URINE AUTO; Value: TRACE; Range: NEGATIVE; Abnormal: Above high normal; Units: mg/dL; Status: F Test: UROBILINOGEN, URINE AUTO; Value: 0.2; Range: 0.0-2.0; Units: mg/dL; Status: F Test: BILIRUBIN, URINE AUTO; Value: NEGATIVE; Range: NEGATIVE; Status: F Test: NITRITE, URINE AUTO; Value: NEGATIVE; Range: NEGATIVE; Status: F Test: LEUKOCYTE ESTERASE, URINE AUTO; Value: NEGATIVE; Range: NEGATIVE; Status: F Test: BLOOD, URINE BLOOD; Value: NEGATIVE; Range: NEGATIVE; Status: F Test: WBC, URINE AUTO; Value: 2; Range: 0-3; Units: /HPF; Status: F Test: RBC, URINE AUTO; Value: 1; Range: 0-3; Units: /HPF; Status: F Test: BACTERIA, URINE AUTO; Value: NEGATIVE; Range: NEGATIVE; Status: F Test: SQUAMOUS EPITHELIAL CELL UR AU; Value: 0; Range: 0-6; Units: /HPF; Status: F Test: MUCUS, URINE; Value: SMALL; Range: NEGATIVE; Status: F Test: HYALINE CAST, URINE AUTO; Value: 2; Range: 0-1; Units: /LPF; Status: F Lab Order: Urine Culture; SPEC'M 12/12/16 22:20 Test: URINE CULTURE; Value: <EXTERNAL COMMENT eCWMed> FULL REPORT IN LAB NOTES (eCW and Medent).; Status: F Test: URINE CULTURE; Value: URINE CULTURE RESULT SPECIMEN APPEARS CONTAMINATED; Status: F Lab Order: -Influenza A&B Rapid Antigen - Nose; SPEC'M 12/12/16 22:20 Test: INFLUENZA A RAPID SCR by ICA; Value: INFLUENZA A RESULTS NEGATIVE; Status: F Test: INFLUENZA A RAPID SCR by ICA; Value: Comments:; Status: F Test: INFLUENZA B RAPID SCR by ICA; Value: INFLUENZA B RESULTS NEGATIVE; Status: F Test Note: ; The Influenza test is a direct rapid immunoassay for the qualitative detection of Influenza viral antigen. Cell culture (Viral Culture) testing should be considered to confirm NEGATIVE results and to assist in detecting other viruses that can provide similar clinical symptoms. Please contact the lab within 24 hours ([phone]) if confirmatory testing is desired. Radiology Order: CT Head Without Contrast Test: CT Head Without Contrast REASON FOR EXAMINATION: barber; ; CT of the head; Clinical history: Headache.; Technique: Multiple axial CT images were obtained through the head without administration of contrast; .; Findings: The ventricles and sulci are symmetric bilaterally. There is no evidence of acute hemorrhag; e or infarct. There is no midline shift, mass effect, or extra-axial fluid collection. The osseous st; ructures are unremarkable. The visualized paranasal sinuses and mastoid air cells are clear.; Impression: Negative study.; ; Radiology Order: CT ABD & PELVIS: No Contrast Test: CT ABD & PELVIS: No Contrast REASON FOR EXAMINATION: luq pain; ; CT of the abdomen and pelvis without contrast; Clinical statement: Pain.; Technique: Multiple axial CT images were obtained from the base of the lungs to the floor of the pelv; is utilizing 5 mm axial slices without administration of contrast. Coronal and sagittal reconstructio; ns were also obtained.; Comparison: 03/27/2015.; Findings:; Chest: The visualized lung bases are clear.; Abdomen: The kidneys are normal in size bilaterally. There is a 1.2 cm simple cyst in the inferior le; ft kidney. There is no evidence of hydronephrosis or nephrolithiasis. The liver, spleen, pancreas, ga; llbladder and adrenal glands are unremarkable. The aorta demonstrates normal caliber and contour. The; re is no abdominal lymphadenopathy or ascites.; Pelvis: The bowel is unremarkable, with no obstructive or inflammatory changes. The appendix is nate; l. The urinary bladder is within normal limits. There is no pelvic lymphadenopathy or ascites. The ot; her pelvic structures appear unremarkable.; Bones: There are no suspicious osseous abnormalities seen.; Impression: No acute abnormality appreciated.; ; Outcome: 23:41 Discharge ordered by Provider. sylvester 23:52 Discharge Assessment: Patient awake, alert and oriented x 3. No cognitive and/or ld5 functional deficits noted. Patient verbalized understanding of disposition instructions. patient administered narcotics - no. The following High Risk Discharge criteria are identified: None. Discharged to home ambulatory. Condition: stable. Discharge instructions given to patient, Instructed on discharge instructions, follow up and referral plans. medication usage, Demonstrated understanding of instructions, medications, Prescriptions given X 1. CT Study completed. Property :Personal belongings accompany Pt. 23:53 Patient left the ED. ld5 Signatures: Dispatcher MedHost EDMS Ruma Zarate, Reg Reg gb Matheus Woodard, VETERINARY MANAGER VETERINARY MANAGER Isabelle ArtRN RN Rayna Poole RN RN ld5 Barbi Muro, Reg Reg [email or web address] Rayna Guadarrama lr2 Chart Complete MTDD
== END 2016-12-12 23:53 | disposition home or self-care (01) ==
LOC: M ED 20:49
DX: R51 Headache (principal); R10.2 Pelvic and perineal pain; B34.9 Viral infection, unspecified; D89.89 Other specified disorders involving the immune mechanism, not elsewhere classified; F31.9 Bipolar disorder, unspecified; E78.00 Pure hypercholesterolemia, unspecified; F17.210 Nicotine dependence, cigarettes, uncomplicated; Z88.8 Allergy status to other drugs, medicaments and biological substances
CPT/HCPCS: 36415; 70450; 74176; 80048; 80076; 81001; 82150; 83690; 85025; 87086; 87804; 96361; 96365; 96375; 99284; J1885; J2765

== ENCOUNTER → 2017-02-01 | Outpatient (REF) | payer MEDICARE, OTHER | LOC: M LAB REF 17:41 | PROVIDERS: ATTEND Physician Assistant | DX: J02.9 Acute pharyngitis, unspecified (principal) ==

== ENCOUNTER → 2018-01-08 | Outpatient (REF) | payer MEDICARE ==
[2018-01-08 13:29] LABS: URINE TOTAL PROTEIN 5.4 MG/DL (0-12)
[2018-01-08 13:40] LABS: PTH INTACT 61.6 PG/ML (18.5-88.0)
[2018-01-08 13:40] LABS: VITAMIN B12 LEVEL 419 PG/ML
[2018-01-08 13:41] LABS: FOLATE 12.5 NG/ML
[2018-01-09 10:48] LABS: TOTAL PROTEIN 6.3 GM/DL (6.4-8.2)
[2018-01-09 13:50] LABS: ALBUMIN 3.77 GM/DL (3.29-5.55); ALBUMIN % 59.8 % (55.8-66.1); ALPHA-1-GLOBULIN % 4.3 % (2.9-4.9); ALPHA-1-GLOBULINS 0.27 GM/DL (0.17-0.41); ALPHA-2-GLOBULINS 0.63 GM/DL (0.42-0.99); BETA-1-GLOBULINS 0.37 GM/DL (0.28-0.60); BETA-1-GLOBULINS % 5.8 % (4.7-7.2); BETA-2-GLOBULINS % 6.3 % (3.2-6.5); GAMMA GLOBULIN % 13.8 % (11.1-18.8); GAMMA GLOBULINS 0.87 GM/DL (0.65-1.58)
[2018-01-10 00:06] LABS: Lyme Disease IgG/IgM Antibodie <0.91 ISR (0.00-0.90); Lyme Disease IgM Ab Quantitati <0.80 index (0.00-0.79)
== END ==
LOC: M LAB REF 12:57
DX: M79.605 Pain in left leg (principal); R53.83 Other fatigue; R26.89 Other abnormalities of gait and mobility
CPT/HCPCS: 82746

== ENCOUNTER → 2018-05-08 | Outpatient (CLI) | payer OTHER ==
[~2018-05-08] MED LIST changes: +E-Z-GAS II EFFERVESCENT PACKET (SODIUM BICARB./CITRIC ACID/SIMETHICONE) As Ordered; +E-Z-HD 98% w/w 340GM SUSP BTL As Ordered; +E-Z-PAQUE 96% w/w SUSP 176GM BTL As Ordered; -EXCETAB80 PO; -META55.43 PO; -PAIN PILL PO
== END ==
LOC: M RAD 09:40
DX: K21.9 Gastro-esophageal reflux disease without esophagitis (principal)
CPT/HCPCS: 74220

== ENCOUNTER 2018-08-06 14:15 | Emergency (ER) | payer OTHER ==
[2018-08-06 14:47] LABS: BASO # 0.1 10^3/uL (0.0-0.2); BASO % 0.7 % (0.0-1.0); EOS # 0.1 10^3/uL (0.0-0.50); EOS % 1.1 % (0.0-3.0); HEMATOCRIT 37.7 % (36.0-47.0); HEMOGLOBIN 12.8 g/dl (12.0-15.5); IMMATURE GRANULOCYTE % 0.4 % (0-3.0); LYMPH # 3.2 10^3/uL (1.5-4.5); LYMPH % 39.7 % (24.0-44.0); MEAN CORPUSCULAR HEMOGLOBIN 31.4 pg (27.0-33.0); MEAN CORPUSCULAR VOLUME 92.6 fl (80.0-96.0); MONO # 0.7 10^3/uL (0.0-0.8); MONO % 8.1 % (0.0-5.0); NEUTROPHILS # 4.1 10^3/uL (1.8-7.7); PLATELET COUNT, AUTOMATED 325 10^3/uL (150-450); RED BLOOD COUNT 4.07 10^6/uL (4.00-5.40); RED CELL DISTRIBUTION WIDTH 11.6 % (11.5-14.5); WHITE BLOOD COUNT 8.2 10^3/uL (4.0-10.0)
[2018-08-06 15:35] LABS: ALBUMIN 3.7 GM/DL (3.2-5.2); ALBUMIN/GLOBULIN RATIO 1.12 (1.00-1.93); ALKALINE PHOSPHATASE 88 U/L (45-117); ALT/SGPT 37 U/L (12-78); ANION GAP 9 MEQ/L (8-16); AST/SGOT 20 U/L (7-37); BILIRUBIN,DIRECT < 0.1 MG/DL (0.0-0.2); BILIRUBIN,TOTAL 0.4 MG/DL (0.2-1.0); BLOOD UREA NITROGEN 19 MG/DL (7-18); CALCIUM LEVEL 9.3 MG/DL (8.5-10.1); CARBON DIOXIDE LEVEL 26 MEQ/L (21-32); CHLORIDE LEVEL 108 MEQ/L (98-107); CK-MB VALUE MASS < 1.0 NG/ML (<3.6); CPK CREATINE PHOSPHOKINASE 110 U/L (26-192); GLOMERULAR FILTRATION RATE > 60.0 (>51); GLUCOSE, FASTING 102 MG/DL (70-100); LIPASE 301 U/L (73-393); MB/CK RELATIVE INDEX 0.91 (< OR =4); NT-PRO BNP 57 PG/ML (<125); POTASSIUM SERUM 4.2 MEQ/L (3.5-5.1); SODIUM LEVEL 143 MEQ/L (136-145); TROPONIN I < 0.02 NG/ML (< 0.10)
[2018-08-06 19:28] LABS: CK-MB VALUE MASS < 1.0 NG/ML (<3.6); CPK CREATINE PHOSPHOKINASE 106 U/L (26-192); MB/CK RELATIVE INDEX 0.94 (< OR =4); TROPONIN I < 0.02 NG/ML (< 0.10)
== END 2018-08-06 19:49 | disposition home or self-care (01) ==
LOC: M ED 14:15
DX: K21.9 Gastro-esophageal reflux disease without esophagitis (principal); R94.31 Abnormal electrocardiogram [ECG] [EKG]; Z87.891 Personal history of nicotine dependence; Z88.8 Allergy status to other drugs, medicaments and biological substances; Z91.040 Latex allergy status; Z79.890 Hormone replacement therapy; Z79.899 Other long term (current) drug therapy
CPT/HCPCS: 71045

== ENCOUNTER → 2018-09-15 | Outpatient (REF) | payer OTHER ==
[2018-09-16 06:43] LABS: HEPATITIS C VIRUS ABY INDEX 0.1 INDEX (<0.8)
[2018-09-16 06:43] LABS: HIV 1&2 SCREEN CENTAUR NEGATIVE (NEGATIVE)
== END ==
LOC: M LAB REF 17:20
DX: Z01.89 Encounter for other specified special examinations (principal); Z11.4 Encounter for screening for human immunodeficiency virus [HIV]
CPT/HCPCS: 86803

== ENCOUNTER 2018-11-11 08:53 | Day surgery (SDC) | payer MEDICARE ==
[~2018-11-11] VITALS: Ht 160 cm; Wt 91.5 kg
[~2018-11-11 08:53] MED LIST changes: -E-Z-GAS II EFFERVESCENT PACKET (SODIUM BICARB./CITRIC ACID/SIMETHICONE) As Ordered; -E-Z-HD 98% w/w 340GM SUSP BTL As Ordered; -E-Z-PAQUE 96% w/w SUSP 176GM BTL As Ordered; +EXCETAB80 PO; +FLUO20CA19 PO; +LEVO25TA5 PO; +LIDOCAINE 2% INJ 100 MG/5 ML SDV (FOR ANES.) As Ordered ONE; +META55.43 PO; +NS 1,000 ML IV SCH; +PAIN PILL PO; +PROPOFOL 200 MG/20 ML VIAL As Ordered ONE
[2018-11-11] MEDS ORDERED: fentaNYL 100 MCG/2 ML INJECTION (J3010) As Ordered ONE (08:54)
--- NOTE | 2018-11-11 09:44 | ROOR ---
Patient Name: Marian Vera Procedure Date: 11/11/2018 9:29 AM Date of : 1960 Age: 57 Room: [facility] Gender: Female Note Status: Finalized Procedure: Upper GI endoscopy Indications: Pharyngeal phase dysphagia Providers: Poncho Faulkner MD Referring MD: EDD DENISE JR, MD Requesting Provider: Medicines: Monitored Anesthesia Care Complications: No immediate complications. Procedure: Pre-Anesthesia Assessment: - Prior to the procedure, a History and Physical was performed, and patient medications and allergies were reviewed. The patient is competent. The risks and benefits of the procedure and the sedation options and risks were discussed with the patient. All questions were answered and informed consent was obtained. Patient identification and proposed procedure were verified by the physician, the nurse and the anesthesiologist in the procedure room. Mental Status Examination: alert and oriented. Airway Examination: normal oropharyngeal airway and neck mobility. Respiratory Examination: clear to auscultation. CV Examination: normal. Prophylactic Antibiotics: The patient does not require prophylactic antibiotics. Prior Anticoagulants: The patient has taken no previous anticoagulant or antiplatelet agents. ASA Grade Assessment: II - A patient with mild systemic disease. After reviewing the risks and benefits, the patient was deemed in satisfactory condition to undergo the procedure. The anesthesia plan was to use monitored anesthesia care (MAC). Immediately prior to administration of medications, the patient was re-assessed for adequacy to receive sedatives. The heart rate, respiratory rate, oxygen saturations, blood pressure, adequacy of pulmonary ventilation, and response to care were monitored throughout the procedure. The physical status of the patient was re-assessed after the procedure. The Endoscope was introduced through the mouth, and advanced to the third part of duodenum. The upper GI endoscopy was accomplished without difficulty. The patient tolerated the procedure well. Findings: There is no endoscopic evidence of bleeding, esophagitis, inflammation, mucosal abnormalities, stenosis or stricture in the entire esophagus. Localized mildly congested mucosa was found at the pylorus. This was biopsied with a cold forceps for histology. Estimated blood loss was minimal. The examined duodenum was normal. Impression: - Congestive gastropathy. Biopsied. - Normal examined duodenum. Recommendation: - Discharge patient to home (ambulatory). - Continue present medications. - Await pathology results. Poncho Faulkner MD Poncho Faulkner MD 11/11/2018 9:44:25 AM This report has been signed electronically. Number of Addenda: 0 Note Initiated On: 11/11/2018 9:29 AM Estimated Blood Loss: Estimated blood loss was minimal.
[2018-11-11 10:00] VITALS: BP 135/85
[2018-11-11] MEDS ORDERED: PROPOFOL 200 MG/20 ML VIAL As Ordered ONE ×2 (12:40→12:41)
== END 2018-11-11 09:50 | disposition home or self-care (01) ==
LOC: M OPP 08:53
PROVIDERS: ATTEND Surgery
DX: R13.13 Dysphagia, pharyngeal phase (principal); F45.8 Other somatoform disorders; K29.00 Acute gastritis without bleeding; K29.50 Unspecified chronic gastritis without bleeding; B96.81 Helicobacter pylori [H. pylori] as the cause of diseases classified elsewhere; K21.9 Gastro-esophageal reflux disease without esophagitis; G47.30 Sleep apnea, unspecified; Z79.899 Other long term (current) drug therapy; Z88.8 Allergy status to other drugs, medicaments and biological substances; Z91.040 Latex allergy status
CPT/HCPCS: 43239; 88305; J3010

== ENCOUNTER → 2018-11-23 | Outpatient (REF) | payer MEDICARE ==
[~2018-11-23] MED LIST changes: -LIDOCAINE 2% INJ 100 MG/5 ML SDV (FOR ANES.) As Ordered ONE; -NS 1,000 ML IV SCH; -PROPOFOL 200 MG/20 ML VIAL As Ordered ONE
== END ==
LOC: M LAB REF 11:45
PROVIDERS: ATTEND Nurse Practitioner Family
DX: R06.02 Shortness of breath (principal)

== ENCOUNTER → 2019-05-04 | Outpatient (CLI) | payer OTHER ==
[2019-05-04 15:16] LABS: BLOOD UREA NITROGEN 16 MG/DL (7-18); GLOMERULAR FILTRATION RATE > 60.0 (>45)
== END ==
LOC: M WUC 14:10
PROVIDERS: ATTEND Physician Assistant
DX: M47.817 Spondylosis without myelopathy or radiculopathy, lumbosacral region (principal)

== ENCOUNTER → 2020-05-26 | Outpatient (REF) | payer MEDICARE, OTHER ==
[~2020-05-26] MED LIST changes: -FLUO20CA19 PO; +FLUO20CA22 PO
[2020-07-06 07:54] LABS: H PYLORI SERUM QUANT IGM SEE SEPARATE REPORT; H PYLORI SERUM QUANT IgG ABY SEE SEPARATE REPORT
[2020-07-06 07:55] LABS: H PYLORI SERUM QUANT IGA SEE SEPARATE REPORT
== END ==
LOC: M LAB REF 12:01
PROVIDERS: ATTEND Nurse Practitioner Adult Health
DX: B96.81 Helicobacter pylori [H. pylori] as the cause of diseases classified elsewhere (principal)

== ENCOUNTER → 2020-08-08 | Outpatient (CLI) | payer MEDICARE, OTHER ==
--- NOTE | 2020-08-11 09:44 | REP ---
RIGHT FIFTH TOE RADIOGRAPH: 08/08/20. CLINICAL: Pain with prior trauma. TECHNIQUE: AP lateral bilateral oblique views of the right fifth toe. FINDINGS: There is an oblique non-displaced fracture through the midshaft of the fifth toe proximal phalanx with overlying soft tissue swell ing. IMPRESSION: Nondisplaced fracture involving the proximal phalanx fifth toe. MTDD
== END ==
LOC: M WUC 12:13
PROVIDERS: ATTEND Nurse Practitioner Family
DX: S92.514A Nondisplaced fracture of proximal phalanx of right lesser toe(s), initial encounter for closed fracture (principal); X58.XXXA Exposure to other specified factors, initial encounter; Y92.89 Other specified places as the place of occurrence of the external cause

== ENCOUNTER → 2020-09-27 | Outpatient (CLI) | payer MEDICARE, OTHER ==
[~2020-09-27] MED LIST changes: +ATOR40TA75
== END ==
LOC: M LABSMTC 10:49
PROVIDERS: ATTEND Anesthesiology
DX: Z01.812 Encounter for preprocedural laboratory examination (principal); Z20.828 Contact with and (suspected) exposure to other viral communicable diseases

== ENCOUNTER 2020-10-02 10:13 | Day surgery (SDC) | payer MEDICARE ==
[~2020-10-02] VITALS: Ht 160 cm; Wt 93.3 kg
[~2020-10-02 10:13] MED LIST changes: +NS 1,000 ML IV ONE
[2020-10-02] MEDS ORDERED: propofoL 200 MG/20 ML VIAL As Ordered ONE (10:58)
[2020-10-02] MEDS ORDERED: LIDOCAINE 2% 100MG/5ML SDV (FOR ANES.) As Ordered ONE (10:58)
[2020-10-02 12:36] VITALS: BP 123/59
--- NOTE | 2020-10-02 13:00 | ROOR ---
Patient Name: Marian Vera Procedure Date: 10/02/2020 11:40 AM Date of : 1960 Age: 59 Room: [facility] Gender: Female Note Status: Finalized Procedure: Colonoscopy Indications: Screening for colorectal malignant neoplasm, High risk colon cancer surveillance: Personal history of colonic polyps Providers: Dov Renteria MD Referring MD: Quin Bolden NP Requesting Provider: Medicines: Monitored Anesthesia Care Complications: No immediate complications. Procedure: Pre-Anesthesia Assessment: - Prior to the procedure, a History and Physical was performed, and patient medications and allergies were reviewed. The patient is competent. The risks and benefits of the procedure and the sedation options and risks were discussed with the patient. All questions were answered and informed consent was obtained. Patient identification and proposed procedure were verified by the physician, the nurse and the anesthesiologist in the procedure room. Mental Status Examination: alert and oriented. Airway Examination: normal oropharyngeal airway and neck mobility. Respiratory Examination: clear to auscultation. CV Examination: normal. Prophylactic Antibiotics: The patient does not require prophylactic antibiotics. Prior Anticoagulants: The patient has taken no previous anticoagulant or antiplatelet agents. ASA Grade Assessment: II - A patient with mild systemic disease. After reviewing the risks and benefits, the patient was deemed in satisfactory condition to undergo the procedure. The anesthesia plan was to use monitored anesthesia care (MAC). Immediately prior to administration of medications, the patient was re-assessed for adequacy to receive sedatives. The heart rate, respiratory rate, oxygen saturations, blood pressure, adequacy of pulmonary ventilation, and response to care were monitored throughout the procedure. The physical status of the patient was re-assessed after the procedure. The Colonoscope was introduced through the anus and advanced to the terminal ileum, with identification of the appendiceal orifice and IC valve. The colonoscopy was performed without difficulty. The patient tolerated the procedure well. The quality of the bowel preparation was good. The ileocecal valve, appendiceal orifice, and rectum were photographed. Scope insertion time was 2 minutes. Scope withdrawal time was 10 minutes. The total duration of the procedure was 12 minutes. Findings: The perianal and digital rectal examinations were normal. The terminal ileum appeared normal. A 20 mm polyp was found in the sigmoid colon. The polyp was semi-sessile. The polyp was removed with a hot snare. Resection and retrieval were complete. Verification of patient identification for the specimen was done by the physician and nurse using the patient's name, date and medical record number. Estimated blood loss was minimal. Five sessile polyps were found in the recto-sigmoid colon and ascending colon. The polyps were 4 to 10 mm in size. These polyps were removed with a hot snare. Resection and retrieval were complete. Non-bleeding external and internal hemorrhoids were found during retroflexion. The hemorrhoids were medium-sized. Impression: - The examined portion of the ileum was normal. - One 20 mm polyp in the sigmoid colon, removed with a hot snare. Resected and retrieved. - Five 4 to 10 mm polyps at the recto-sigmoid colon and in the ascending colon, removed with a hot snare. Resected and retrieved. - Non-bleeding external and internal hemorrhoids. Recommendation: - Patient has a contact number available for emergencies. The signs and symptoms of potential delayed complications were discussed with the patient. Return to normal activities tomorrow. Written discharge instructions were provided to the patient. - Clear liquid diet today, then advance as tolerated to high fiber diet. - Continue present medications. - Miralax 1 capful (17 grams) in 8 ounces of water PO daily for 2 weeks. - Await pathology results. - Repeat colonoscopy in 3 years for surveillance based on pathology results. - Telephone GI clinic for pathology results in 2 weeks. - Return to primary care physician. Procedure Code(s): --- Professional --- 25872, Colonoscopy, flexible; with removal of tumor(s), polyp(s), or other lesion(s) by snare technique Diagnosis Code(s): --- Professional --- K63.5, Polyp of colon Z12.11, Encounter for screening for malignant neoplasm of colon Z86.010, Personal history of colonic polyps K64.8, Other hemorrhoids CPT copyright 2019 [employer]. All rights reserved. The codes documented in this report are preliminary and upon coder operator review may be revised to meet current compliance requirements. Dov Renteria MD Dov Renteria MD 10/02/2020 1:00:01 PM Electronically signed by Dov Renteria MD Number of Addenda: 0 Note Initiated On: 10/02/2020 11:40 AM Estimated Blood Loss: Estimated blood loss was minimal.
[2020-10-03] MEDS ORDERED: HYDR-643 PO (19:55)
== END 2020-10-02 13:12 | disposition home or self-care (01) ==
LOC: M OPP 10:13
PROVIDERS: ATTEND Internal Medicine Gastroenterology
DX: Z12.11 Encounter for screening for malignant neoplasm of colon (principal); Z86.010 Personal history of colon polyps; K63.5 Polyp of colon; K64.8 Other hemorrhoids; G47.30 Sleep apnea, unspecified; E03.9 Hypothyroidism, unspecified; M32.9 Systemic lupus erythematosus, unspecified; L40.9 Psoriasis, unspecified; Z79.899 Other long term (current) drug therapy; Z88.8 Allergy status to other drugs, medicaments and biological substances; Z91.040 Latex allergy status; Z80.0 Family history of malignant neoplasm of digestive organs

== ENCOUNTER → 2020-10-25 | Outpatient (REF) | payer MEDICARE ==
[~2020-10-25] MED LIST changes: +HYDR-643 PO; -NS 1,000 ML IV ONE
[2020-10-25 16:59] LABS: C REACTIVE PROTEIN QUANTITATIV < 0.30 MG/DL (0.00-0.30); RHEUMATOID FACTOR QUANT < 10.0 IU/ML (<15.0)
== END ==
LOC: M LAB REF 16:36
PROVIDERS: ATTEND Internal Medicine
DX: M47.817 Spondylosis without myelopathy or radiculopathy, lumbosacral region (principal); M51.37 Other intervertebral disc degeneration, lumbosacral region; M43.16 Spondylolisthesis, lumbar region

== ENCOUNTER → 2020-12-17 | Outpatient (CLI) | payer MEDICARE ==
--- NOTE | 2020-12-20 11:05 | SLEEPCENT ---
NOCTURNAL POLYSOMNOGRAPHY DATE: 12/17/2020 ORDERED BY: SONAM Hermna Nocturnal polysomnography was performed for evaluation of sleep physiology in this patient with a prior history of obstructive sleep apnea syndrome, who is experiencing excessive somnolence, snoring, and has comorbidities of hypothyroidism. 7 hours and 57 minutes of data were reviewed. There were 349.5 minutes of sleep identified. Sleep latency was prolonged at 55.5 minutes. REM latency was prolonged at 146.5 minutes. Sleep architecture showed fragmentation. There were two REM cycles noted. Overall sleep efficiency was 75.1%. The electrocardiogram showed a sinus rhythm with an average heart rate of 65 beats per minute; rate range 50 to 82. EEG showed some coarsening in the background. There were no focal events and normal waveforms were noted for wake and sleep. There were 222 respiratory events identified of 10 seconds in duration or greater for an apnea-hypopnea index of 38.1. The events were not exclusive to sleep stage nor to body posture. Arousals from respiratory events occurred 8.2 times per hour and oxygen desaturations were seen into the 80s. IMPRESSION: Obstructive sleep apnea syndrome (G47.33), apnea-hypopnea index 38.1. RECOMMENDATION: The patient should be encouraged to return to [facility] for [facility]. In the interim, alcohol and sedative avoidance should be practiced and caution exercised during the operation of motor vehicles.
== END ==
LOC: M SLEEP 20:00
PROVIDERS: ATTEND Nurse Practitioner Family
DX: R06.83 Snoring (principal)

== ENCOUNTER → 2020-12-21 | Outpatient (REF) | payer MEDICARE, OTHER ==
[2020-12-21 17:41] LABS: TOTAL PROTEIN 7.3 GM/DL (6.4-8.2)
[2020-12-25 15:40] LABS: ALBUMIN 4.11 GM/DL (3.29-5.55); ALBUMIN % 56.3 % (55.8-66.1); ALPHA-1-GLOBULINS 0.29 GM/DL (0.17-0.41); ALPHA-2-GLOBULINS 0.88 GM/DL (0.42-0.99); ALPHA-2-GLOBULINS % 12.1 % (7.1-11.8); BETA-1-GLOBULINS 0.44 GM/DL (0.28-0.60); BETA-2-GLOBULINS 0.53 GM/DL (0.19-0.55); BETA-2-GLOBULINS % 7.2 % (3.2-6.5); GAMMA GLOBULIN % 14.4 % (11.1-18.8); GAMMA GLOBULINS 1.05 GM/DL (0.65-1.58)
== END ==
LOC: M LAB REF 16:38
PROVIDERS: ATTEND Nurse Practitioner Adult Health
DX: M47.817 Spondylosis without myelopathy or radiculopathy, lumbosacral region (principal)

== ENCOUNTER → 2021-02-25 | Outpatient (CLI) | payer MEDICARE ==
--- NOTE | 2021-02-27 10:46 | SLEEPCENT ---
NOCTURNAL POLYSOMNOGRAPHY CPAP TITRATION DATE: 02/25/2021 ORDERED BY: SONAM Herman Nocturnal polysomnography was performed for the titration of pressure therapy in this patient with obstructive sleep apnea syndrome with apnea-hypopnea index of 38.1. For testing a ResMed F20 AirFit full face mask of medium size was used, 4 cm of water pressure were applied to the circuit, and the lights were extinguished. 7 hours and 29 minutes of data were reviewed. There were 321 minutes of sleep identified. Sleep latency was normal at 19.5 minutes. REM latency was normal at 81 minutes. Sleep architecture was good with three REM cycles. Overall sleep efficiency was 72.5%. The electrocardiogram showed a sinus rhythm with an average heart rate of 58 beats per minute. EEG showed normal waveforms for wake and sleep. Respiratory events were fully palliated with CPAP at a pressure of 6 and remaining measures of sleep physiology were normal. IMPRESSION: Obstructive sleep apnea syndrome (G47.33). RECOMMENDATION: Nightly use of pressure therapy 6 cm of water.
== END ==
LOC: M SLEEP 20:00
PROVIDERS: ATTEND Nurse Practitioner Family
DX: G47.33 Obstructive sleep apnea (adult) (pediatric) (principal)

== ENCOUNTER → 2021-10-09 | Outpatient (CLI) | payer MEDICARE ==
[2021-10-09 16:51] LABS: FOLATE 11.7 NG/ML (>5.4)
== END ==
LOC: M WUC 12:00
PROVIDERS: ATTEND Psychiatry & Neurology Neurology
DX: G70.9 Myoneural disorder, unspecified (principal)

== ENCOUNTER → 2021-10-12 | Outpatient (CLI) | payer MEDICARE | LOC: M WUC 14:41 | PROVIDERS: ATTEND Physical Medicine & Rehabilitation | DX: M48.061 Spinal stenosis, lumbar region without neurogenic claudication (principal); M47.897 Other spondylosis, lumbosacral region; M51.37 Other intervertebral disc degeneration, lumbosacral region ==

== ENCOUNTER → 2022-05-31 | Outpatient (REF) | payer MEDICARE | LOC: M LAB REF 16:09 | PROVIDERS: ATTEND Nurse Practitioner Adult Health | DX: N39.0 Urinary tract infection, site not specified (principal) ==

== ENCOUNTER → 2023-03-31 | Outpatient (CLI) | payer MEDICARE | LOC: M RAD 14:14 | PROVIDERS: ATTEND Nurse Practitioner Adult Health | DX: I65.23 Occlusion and stenosis of bilateral carotid arteries (principal) ==

== ENCOUNTER → 2023-07-14 | Outpatient (CLI) | payer MEDICARE ==
[~2023-07-14] MED LIST changes: +B-12100011 SL; +META0.52 PO; +MIRA3350 PO; +THERTAB52 PO
== END ==
LOC: M RAD 13:55
PROVIDERS: ATTEND Nurse Practitioner Adult Health
DX: Z12.2 Encounter for screening for malignant neoplasm of respiratory organs (principal); F17.211 Nicotine dependence, cigarettes, in remission; I70.0 Atherosclerosis of aorta; I25.84 Coronary atherosclerosis due to calcified coronary lesion

== ENCOUNTER → 2023-10-17 | Outpatient (CLI) | payer MEDICARE ==
[~2023-10-17] MED LIST changes: +GASTROGRAFIN SOLUTION 30ML ONE; +ISOVUE-370 76% 100ML VIAL ONE
== END ==
LOC: M PLAIMG 09:01
PROVIDERS: ATTEND Physician Assistant Medical
DX: R10.12 Left upper quadrant pain (principal)
CPT/HCPCS: 74177; Q9963; Q9967

== ENCOUNTER → 2024-03-30 | Outpatient (CLI) | payer MEDICARE ==
[~2024-03-30] MED LIST changes: +FLUO-365 PO; -FLUO20CA22 PO; -GASTROGRAFIN SOLUTION 30ML ONE; -ISOVUE-370 76% 100ML VIAL ONE
[2024-03-30 16:44] LABS: PLATELET COUNT, AUTOMATED 263 10^3/uL (150-450)
[2024-03-30 16:53] LABS: INR 1.04; PROTHROMBIN TIME 13.3 SECONDS (12.5-14.5)
== END ==
LOC: M WUC 12:24
PROVIDERS: ATTEND Physician Assistant
DX: Z01.818 Encounter for other preprocedural examination (principal); Z79.01 Long term (current) use of anticoagulants

== ENCOUNTER → 2024-08-18 | Outpatient (REF) | payer MEDICARE | LOC: M LAB REF 12:40 | PROVIDERS: ATTEND Physician Assistant Medical | DX: R10.12 Left upper quadrant pain (principal) ==

== ENCOUNTER → 2024-08-20 | Outpatient (CLI) | payer MEDICARE | LOC: M RAD 06:40 | PROVIDERS: ATTEND Physician Assistant Medical | DX: Z12.2 Encounter for screening for malignant neoplasm of respiratory organs (principal); F17.211 Nicotine dependence, cigarettes, in remission; J47.9 Bronchiectasis, uncomplicated; I70.0 Atherosclerosis of aorta; I25.10 Atherosclerotic heart disease of native coronary artery without angina pectoris ==

== ENCOUNTER → 2025-01-10 | Outpatient (REF) | payer MEDICARE ==
[2025-01-10 18:02] LABS: LIPASE 69 U/L (12-53)
[2025-01-10 18:04] LABS: C REACTIVE PROTEIN QUANTITATIV < 0.50 MG/DL (<1.0)
[2025-01-10 18:31] LABS: MONO REFLEX EBV VCA IgM NEGATIVE (NEGATIVE)
== END ==
LOC: M LAB REF 17:33
PROVIDERS: ATTEND Physician Assistant Medical
DX: R10.84 Generalized abdominal pain (principal); R10.12 Left upper quadrant pain

== ENCOUNTER → 2025-02-01 | Outpatient (CLI) | payer MEDICARE | LOC: M RAD 12:49 | PROVIDERS: ATTEND Physician Assistant Medical | DX: R42 Dizziness and giddiness (principal); I65.23 Occlusion and stenosis of bilateral carotid arteries ==

== ENCOUNTER → 2025-02-16 | Outpatient (REF) | payer MEDICARE | LOC: M LAB REF 12:35 | PROVIDERS: ATTEND Physician Assistant Medical | DX: R74.8 Abnormal levels of other serum enzymes (principal) ==

== ENCOUNTER → 2025-09-16 | Outpatient (CLI) | payer MEDICARE | LOC: M PLAIMG 07:47 | PROVIDERS: ATTEND Physician Assistant | DX: M47.22 Other spondylosis with radiculopathy, cervical region (principal); M43.12 Spondylolisthesis, cervical region ==